=== PATIENT | female | born 1990 | race Two or more races ===

== ENCOUNTER 2021-05-24 21:01 | Inpatient (IN) | payer MEDICAID, OTHER ==
[~2021-05-24] VITALS: Ht 154.9 cm; Wt 86.2 kg
[2021-05-24] MEDS ORDERED: PROMETHAZINE HCL 25 MG/ML 1ML IV PRN (21:30)
[2021-05-24] MEDS ORDERED: LIDOCAINE 2%HCL (LOCAL ANESTH.) INJ 20ML MDV IJ PRN (21:30)
[2021-05-24] MEDS ORDERED: PENICILLIN G POT 5MIL/D5 50ML 50 ML IV ONE (21:30)
[2021-05-24] MEDS ORDERED: PHISODERM TOP SOLN 240ML BTL TOP PRN (21:30)
[2021-05-24] MEDS ORDERED: LACTATED RINGER'S 1,000 ML IV SCH (21:30)
[2021-05-24] MEDS ORDERED: DERMOPLAST 60ML BOTTLE TOP PRN (21:30)
[2021-05-24] MEDS ORDERED: WITCH HAZEL-GLYCERIN PAD TOP PRN (21:30)
[2021-05-24] MEDS ORDERED: BUTORPHANOL TARTRATE 2 MG/1 ML VIAL IV PRN ×2 (21:30)
[2021-05-24 22:46] LABS: Basophils # (auto) 0.2 10 ^3/uL (0-0.2); Basophils % (auto) 1.5 % (0.0-2.0); Eosinophils # (auto) 0.1 10 ^3/uL (0-0.8); Hematocrit 30.6 % (36.0-46.0); Hemoglobin 9.8 g/dL (12.2-16.2); Lymphocytes # (auto) 1.4 10 ^3/uL (0.4-5.4); Lymphocytes % (auto) 12.5 % (10.0-50.0); Mean Corpuscular Hemoglobin 25.5 pg (28.0-32.0); Mean Corpuscular Hgb Conc. 32.1 g/dL (32.0-36.0); Mean Corpuscular Volume 79.5 fL (80.0-100.0); Monocytes # (auto) 0.6 10 ^3/uL (0-1.3); Monocytes % (auto) 5.2 % (0.0-12.0); Neutrophils # (auto) 9.1 10 ^3/uL (1.6-8.6); Neutrophils % (auto) 79.8 % (37.0-80.0); Nucleated Red Blood Cells % 0.1 %; Red Blood Cells 3.85 10^6/uL (4.0-5.20); White Blood Cell 11.4 10^3/uL (4.4-10.8)
[2021-05-24 23:03] LABS: Albumin 1.7 g/dL (3.4-5.0); Anion Gap 6 (5-15); BUN/Creatinine Ratio 6.8; Blood Urea Nitrogen 3 mg/dL (7-18); Calcium 7.7 mg/dL (8.5-10.1); Carbon Dioxide 23 mmol/L (21-32); Chloride 111 mmol/L (98-107); GFR African American 217 mL/min; GFR Non-African American 180 mL/min; Glucose 75 mg/dL (74-106); Potassium 3.9 mmol/L (3.5-5.1); Sodium 140 mmol/L (136-145)
[2021-05-24 23:05] LABS: INR 0.87 (0.9-1.15); Partial Thromboplastin Time 22.4 sec (23.6-33.0)
[2021-05-24 23:13] LABS: Alcohol, Urine < 3.0 mg/dL (0-10); Amphetamine Screen, Urine POSITIVE (NEGATIVE); Barbiturate Scree,Urine NEGATIVE (NEGATIVE); Benzodiazephine Screen, Urine NEGATIVE (NEGATIVE); Cannabinoid Screen, Urine NEGATIVE (NEGATIVE); Opiate Scree,Urine NEGATIVE (NEGATIVE)
[2021-05-24 23:16] LABS: Alanine Aminotransferase 17 U/L (13-56); Alkaline Phosphatase 149 U/L (45-117); Aspartate Aminotransferase 15 U/L (15-37); Bilirubin, Total 0.1 mg/dL (0.2-1.0); Total Protein 5.7 g/dL (6.4-8.2)
[2021-05-24 23:17] LABS: Urine Bacteria FEW /hpf (None Seen); Urine Blood Negative /uL (Negative); Urine Hyaline Cast FEW /lpf (0 - 2); Urine Specific Gravity 1.007 (1.001-1.035); Urine WBC 4 /hpf (0 - 5)
[2021-05-24 23:45] LABS: Cocaine Screen, Urine NEGATIVE (NEGATIVE); Phencyclidine Screen, Urine NEGATIVE (NEGATIVE)
[2021-05-25] VITALS (10 sets, daily range): BP systolic 118–146; BP diastolic 58–85
[2021-05-25] MEDS ORDERED: miSOPROStol 50 MCG per PRE-CUT 1/2 TAB PO PRN (01:15)
[2021-05-25] MEDS ORDERED: PENICILLIN G POTASSIUM 2,500,000 UNITS in D5W 5% 50 ML IV SCH (01:30)
[2021-05-25] MEDS ORDERED: PROMETHAZINE HCL 25 MG/ML 1ML IV PRN (02:00)
[2021-05-25] MEDS ORDERED: OXYTOCIN 10UNIT/ML 1ML VIAL ONE (05:51)
[2021-05-25] MEDS ORDERED: LACT. RINGERS/OXYTOCIN 20UNITS 500 ML IV ONE ×2 (06:00)
[2021-05-25] MEDS ORDERED: ACETAMINOPHEN 325 MG TAB PO PRN (07:15)
[2021-05-25] MEDS: IBUPROFEN 600 MG TAB PO PRN ×2 (07:44→19:59)
[2021-05-26 02:33] VITALS: BP 111/75
[2021-05-26 06:06] LABS: Rubella Antibodies, IgG 2.15 index (Immune >0.99)
[2021-05-26 06:10] VITALS: BP 135/61
[2021-05-26 08:06] LABS: RPR Non Reactive (Non Reactive)
[2021-05-26 11:00] VITALS: BP 119/57
[2021-05-26 15:00] VITALS: BP 116/58
[2021-05-26] MEDS ORDERED: TETANUS-DIPTH-ACEL PERTUSSIS 0.5ML SYR Tdap IM ONE (16:00)
[2021-05-26] MEDS ORDERED: INFLUENZA QUAD 2021-2022 0.5 ML SYRG IM ONE (16:00)
[2021-05-26 19:00] VITALS: BP 130/72
[2021-05-26 23:15] VITALS: BP 125/67
[2021-05-27 03:15] VITALS: BP 118/63
[2021-05-27 06:54] VITALS: BP 116/63
[2021-05-27 11:39] VITALS: BP 125/68
[2021-05-27] MEDS: IBUPROFEN 600 MG TAB PO PRN (13:04)
[2021-05-27 15:00] VITALS: BP 125/76
== END 2021-05-27 17:22 | disposition home or self-care (01) | DRG 560 ==
LOC: LDRP 21:01 → OBSVTOIN 21:25 → NUR 21:26 → LDRP 21:35
PROVIDERS: ADMIT Obstetrics & Gynecology; ATTEND Obstetrics & Gynecology
PROC: 10E0XZZ Delivery of Products of Conception, External Approach (ICD-10-PCS; principal; 2021-05-25)
DX: O41.03X0 Oligohydramnios, third trimester, not applicable or unspecified (principal); Z37.0 Single live birth; Z20.822 Contact with and (suspected) exposure to COVID-19; Z3A.39 39 weeks gestation of pregnancy
CPT/HCPCS: 36415; 59025; 59409; 71045; 76805; 80053; 80307; 81001; 81002; 84112; 85025; 85610; 85730; 86592; 86703; 86762; 86850; 86900; 86901; 87340; 87426; 90686; 90715; 94760; 96360; 96361; 96366; 96372; G0378; J2540; J2590; J7060